=== PATIENT | female | born 1950 | race Asian ===

== ENCOUNTER 2021-01-20 12:23 | Observation (INO) | payer OTHER ==
[2021-01-21] MEDS ORDERED: PIPERACILLIN/TAZO 2.25 G in IV DEXTROSE 5% 50 ML IV ONE (04:15)
[2021-01-21] MEDS ORDERED: VANCOMYCIN IV 1,000 MG in IV DEXTROSE 5% 250 ML IV SCH (04:15)
== END 2021-01-21 08:35 | disposition still patient (30) ==
LOC: TRANSITION 01-21 04:03
PROVIDERS: ADMIT Internal Medicine; ATTEND Internal Medicine
DX: Z00.00 Encounter for general adult medical examination without abnormal findings (principal)
CPT/HCPCS: 86850; 86900; 86901; 86920; 36415; J2543; J7060; G0378 ×6; J3370